=== PATIENT | female | born 1990 | race Caucasian/White ===

== ENCOUNTER 2020-12-19 14:13 | Inpatient (IN) ==
[2020-12-19] MEDS ORDERED: Buffered Lidocaine 1% SYRIN 1 ml INTRADERM ONE (16:21)
[2020-12-19] MEDS ORDERED: Lactated Ringers 1000 ml BAG 1,000 ML IV ONE (16:21)
[2020-12-19 19:36] LABS: Urine Benzodiazepine Screen None Detected (None Detect); Urine Cannabinoids Screen None Detected (None Detect); Urine Opiates Screen None Detected (None Detect)
[2020-12-20] MEDS ORDERED: Oxytocin in LR 20 UNITS/1,000 ML BAG IVPB SCH (15:00)
[2020-12-20] MEDS ORDERED: Penicillin G Potassium IV 5,000,000 UNITS in NS 0.9% 100 ml BAG 100 ML IVPB ONE (16:14)
[2020-12-20 16:36] LABS: Hematocrit 37 % (35-47); Hemoglobin 12.5 g/dL (12.0-16.0); Mean Corpuscular HGB Conc 34 g/dL (31-36); Mean Corpuscular Hemoglobin 28 pg (27-31); Mean Corpuscular Volume 85 fL (80-97); Mean Platelet Volume 10.3 fL (7.4-10.4); Platelet Count 135 10^3/uL (150-450); Red Blood Count 4.39 10^6 /uL (3.70-4.87); Red Cell Distribution Width 24 % (10-15); White Blood Count 8.1 10^3/uL (3.5-10.8)
[2020-12-20 16:46] LABS: ABS Eosinophils 0.1 10^3/ul (0-0.6); ABS Lymphocytes 1.7 10^3/ul (1.0-4.8); ABS Monocytes 0.7 10^3/ul (0-0.8); ABS Neutrophils 5.6 10^3/ul (1.5-7.7); Lymphocyte % 20.7 %
[2020-12-20] MEDS: Penicillin G Potassium IV 3,000,000 UNITS in NS 0.9% 100 ml BAG 100 ML IVPB SCH (20:30)
[2020-12-20] MEDS ORDERED: Calcium Carb (TUMS) 500 mg CHEW TAB PO ONE (22:35)
[2020-12-20] MEDS ORDERED: diPHENhydraMINE IV 50 MG/ML 1 ml VIAL (BENADRYL) SLOW PUSH PRN (22:47)
[2020-12-20 23:06] LABS: Albumin 3.7 g/dL (3.2-5.2); Calcium 9.6 mg/dL (8.6-10.3); Potassium 4.2 mmol/L (3.5-5.0); Total Bilirubin 0.5 mg/dL (0.2-1.0)
[2020-12-20 23:12] LABS: Albumin/Globulin Ratio 1.4 (1-3); Globulin 2.6 g/dL (2-4); Total Protein 6.3 g/dL (6.4-8.9)
[2020-12-21] MEDS: Penicillin G Potassium IV 3,000,000 UNITS in NS 0.9% 100 ml BAG 100 ML IVPB SCH ×5 (01:50→17:47)
[2020-12-21] MEDS: Lactated Ringers 1000 ml BAG 1,000 ML IV SCH ×2 (08:58→13:48)
[2020-12-21] MEDS ORDERED: OBEPIDURAL 250 ML EPIDURAL ONE (10:24)
[2020-12-21] MEDS ORDERED: Sodium Citrate/Citric Acid LIQ 15 ML UDC PO PRN (10:56)
[2020-12-21] MEDS ORDERED: Lactated Ringers 1000 ml BAG 500 ML IV PRN (10:56)
[2020-12-21] MEDS ORDERED: EPHEDrine (Pressors) 50 MG/ML VIAL IV PUSH PRN (10:56)
[2020-12-21] MEDS ORDERED: Lactated Ringers 1000 ml BAG 1,000 ML IV ONE (10:56)
[2020-12-21] MEDS ORDERED: Phenylephrine 40 mcg/mL 10mL (400mcg) SYRINGE IV PUSH PRN (10:56)
[2020-12-21] MEDS ORDERED: Lactated Ringers 1000 ml BAG 1,000 ML IV SCH (11:00)
[2020-12-21] MEDS ORDERED: OBEPIDURAL 250 ML EPIDURAL SCH (11:00)
[2020-12-21 12:05] LABS: Urine Appearance Cloudy; Urine Bilirubin Negative (Negative); Urine Blood 3+ (Negative); Urine Color Yellow; Urine Glucose Negative (Negative); Urine Ketones Negative (Negative); Urine Nitrite Negative (Negative); Urine Protein 1+(30 mg/dL) (Negative); Urine Specific Gravity 1.016 (1.002-1.030); Urine Urobilinogen Negative (Negative)
[2020-12-21 12:13] LABS: Urine Bacteria Absent (Absent); Urine Red Blood Cell 3+(>10/hpf) (Absent); Urine Squamous Epithelial Cell Present (Absent); Urine Transitional Epithelial Present (Absent); Urine White Blood Cell Trace(0-5/hpf) (Absent)
[2020-12-21] MEDS ORDERED: Glycerin ADULT 2.4 gm SUPP PR PRN (19:17)
[2020-12-21] MEDS ORDERED: Oxytocin in LR 20 UNITS/1,000 ML BAG IVPB SCH (20:00)
[2020-12-21] MEDS ORDERED: witch hazeL 43% TOP.SOLN 200 ML PHA COMPOUND TOPICAL PRN (20:04)
[2020-12-21] MEDS: Witch Hazel PAD JAR TOPICAL PRN (23:34)
[2020-12-21] MEDS: Dibucaine 1% OINT 28.35 GM TUBE PR PRN (23:35)
[2020-12-22 07:27] LABS: ABS Lymphocytes 1.5 10^3/ul (1.0-4.8); ABS Monocytes 0.7 10^3/ul (0-0.8); ABS Neutrophils 9.1 10^3/ul (1.5-7.7); Eosinophil % 0.3 %; Hematocrit 26 % (35-47); Hemoglobin 8.6 g/dL (12.0-16.0); Lymphocyte % 13.2 %; Mean Corpuscular HGB Conc 33 g/dL (31-36); Mean Corpuscular Hemoglobin 29 pg (27-31); Mean Corpuscular Volume 85 fL (80-97); Mean Platelet Volume 9.8 fL (7.4-10.4); Platelet Count 108 10^3/uL (150-450); Red Cell Distribution Width 25 % (10-15); White Blood Count 11.4 10^3/uL (3.5-10.8)
[2020-12-23 08:07] VITALS: BP 125/82
[2020-12-23] MEDS ORDERED: Flu vaccine *QUAD* 2021-22* 0.5 ML SYRINGE IM ONE (10:57)
[2020-12-23] MEDS: Dibucaine 1% OINT 28.35 GM TUBE PR PRN (16:26)
[2020-12-23] MEDS: Witch Hazel PAD JAR TOPICAL PRN (16:26)
== END 2020-12-23 16:52 | disposition home or self-care (01) | DRG 806 ==
LOC: MCHOBOUT 14:13 → MCHOB 14:50
PROVIDERS: ADMIT Midwife; ATTEND Midwife

== ENCOUNTER 2022-08-21 10:17 | Inpatient (IN) ==
[2022-08-21] MEDS ORDERED: Buffered Lidocaine 1% SYRIN 1 ml INTRADERM ONE (11:50)
[2022-08-21] MEDS ORDERED: Lactated Ringers 1000 ml BAG 1,000 ML IV ONE ×2 (11:50→22:46)
[2022-08-21] MEDS ORDERED: Promethazine INJ(RESTRICTED) 25 MG/ML 1 ml VIAL IV PRN (11:50)
[2022-08-21] MEDS ORDERED: Lactated Ringers 1000 ml BAG 1,000 ML IV SCH ×3 (12:00→23:00)
[2022-08-21] MEDS ORDERED: Penicillin G Potassium IV 5,000,000 UNITS in NS 0.9% 100 ml BAG 100 ML IVPB ONE (12:15)
[2022-08-21] MEDS: miSOPROStol 100 mcg TAB PO SCH ×2 (13:02→17:15)
[2022-08-21] MEDS: Calcium Carb (TUMS) 500 mg CHEW TAB PO PRN ×2 (13:02→17:36)
[2022-08-21 13:38] LABS: Urine Benzodiazepine Screen None Detected (None Detect); Urine Opiates Screen None Detected (None Detect)
[2022-08-21 14:41] LABS: ABS Eosinophils 0.1 10^3/uL (0.0-0.5); ABS Lymphocytes 1.3 10^3/uL (1.0-4.8); ABS Monocytes 0.4 10^3/uL (0.0-0.9); ABS Neutrophils 5.1 10^3/uL (1.5-7.6); ABS Nucleated RBC 0.02 10^3/ul; Eosinophil % 1.6 %; Hematocrit 39.3 % (35-45); Hemoglobin 13.7 g/dL (11.5-14.3); Lymphocyte % 19.1 %; Mean Corpuscular Hemoglobin 32.3 pg (27-33); Mean Corpuscular Hgb Conc 34.8 g/dL (31-36); Mean Corpuscular Volume 92.7 fL (80-97); Mean Platelet Volume 9.8 fL (7.5-11.2); Nucleated Red Blood Cells % 0.2 /100 WBC (0.0-0.4); Platelet Count 149 10^3/uL (150-450); Red Blood Count 4.24 10^6/uL (3.63-4.92); Red Cell Distribution Width 14.3 % (12-17)
[2022-08-21] MEDS: Penicillin G Potassium IV 3,000,000 UNITS in NS 0.9% 100 ml BAG 100 ML IVPB SCH ×2 (17:14→21:48)
[2022-08-21] MEDS ORDERED: Bupivacaine 0.5% SDV PF 30ML VIAL ONE (22:16)
[2022-08-21] MEDS ORDERED: fentaNYL 100 mcg/2 ml 50 MCG/ML VIAL ONE (22:16)
[2022-08-21] MEDS ORDERED: Sodium Citrate/Citric Acid LIQ 15 ML UDC PO PRN (22:46)
[2022-08-21] MEDS ORDERED: Lactated Ringers 1000 ml BAG 500 ML IV PRN ×2 (22:46)
[2022-08-21] MEDS ORDERED: Phenylephrine 40 mcg/mL 10mL (400mcg) SYRINGE IV PUSH PRN ×2 (22:46)
[2022-08-22] MEDS ORDERED: Oxytocin 10 UNITS/ML 1 ML VIAL IM PRN (01:15)
[2022-08-22] MEDS: miSOPROStol 100 mcg TAB PO SCH (01:23)
[2022-08-22] MEDS ORDERED: Lactated Ringers 1000 ml BAG 1,000 ML IV SCH (02:00)
[2022-08-22] MEDS: Penicillin G Potassium IV 3,000,000 UNITS in NS 0.9% 100 ml BAG 100 ML IVPB SCH (07:24)
[2022-08-22] MEDS: Witch Hazel PAD JAR TOPICAL PRN (12:49)
[2022-08-22] MEDS: Dibucaine 1% OINT 28.35 GM TUBE PR PRN (12:49)
[2022-08-22] MEDS: Calcium Carb (TUMS) 500 mg CHEW TAB PO PRN (13:27)
[2022-08-23 10:07] LABS: ABS Eosinophils 0.1 10^3/uL (0.0-0.5); ABS Lymphocytes 1.8 10^3/uL (1.0-4.8); ABS Monocytes 0.7 10^3/uL (0.0-0.9); ABS Neutrophils 8.9 10^3/uL (1.5-7.6); ABS Nucleated RBC 0.01 10^3/ul; Eosinophil % 0.7 %; Hematocrit 37.2 % (35-45); Hemoglobin 12.7 g/dL (11.5-14.3); Lymphocyte % 15.6 %; Mean Corpuscular Hemoglobin 31.7 pg (27-33); Mean Corpuscular Volume 93.3 fL (80-97); Mean Platelet Volume 9.4 fL (7.5-11.2); Nucleated Red Blood Cells % 0.1 /100 WBC (0.0-0.4); Platelet Count 155 10^3/uL (150-450); Red Blood Count 3.99 10^6/uL (3.63-4.92); Red Cell Distribution Width 14.5 % (12-17); White Blood Count 11.5 10^3/uL (3.8-11.8)
[2022-08-24] MEDS: Witch Hazel PAD JAR TOPICAL PRN (08:03)
[2022-08-24] MEDS: Dibucaine 1% OINT 28.35 GM TUBE PR PRN (08:04)
[2022-08-24 08:11] VITALS: BP 123/75
== END 2022-08-24 16:50 | disposition home or self-care (01) | DRG 560 ==
LOC: MCHOBOUT 10:17 → MCHOB 11:50
PROVIDERS: ADMIT Registered Nurse; ATTEND Registered Nurse